=== PATIENT | male | born 1970 ===

== ENCOUNTER 2022-07-26 06:12 | Inpatient (IN) ==
[2022-07-26 06:53] LABS: Hematocrit 33 % (42-52); Hemoglobin 10.9 g/dL (14.0-18.0); Mean Corpuscular HGB Conc 33 g/dL (31-36); Mean Corpuscular Hemoglobin 31 pg (27-31); Mean Corpuscular Volume 94 fL (80-94); Mean Platelet Volume 8.6 fL (7.4-10.4); Platelet Count 281 10^3/uL (150-450); Red Blood Count 3.54 10^6 /uL (4.18-5.48); Red Cell Distribution Width 14 % (10-15); White Blood Count 27.3 10^3/uL (3.5-10.8)
[2022-07-26 07:33] LABS: ALT 17 U/L (7-52); AST 30 U/L (13-39); Albumin 3.2 g/dL (3.2-5.2); Albumin/Globulin Ratio 1.1 (1-3); Alkaline Phosphatase 102 U/L (35-149); Anion Gap 14 mmol/L (2-11); Blood Urea Nitrogen 22 mg/dL (6-24); C Reactive Protein 346.26 mg/L (<8.01); CO2 Carbon Dioxide 21 mmol/L (22-32); Calcium 7.8 mg/dL (8.6-10.3); Chloride 107 mmol/L (101-111); Globulin 2.8 g/dL (2-4); Glucose 110 mg/dL (70-100); Potassium 3.6 mmol/L (3.5-5.0); Sodium 142 mmol/L (135-145)
[2022-07-26 07:41] LABS: ABS Basophils 0.1 10^3/ul (0-0.2); ABS Lymphocytes 0.5 10^3/ul (1.0-4.8); ABS Monocytes 0.3 10^3/ul (0-0.8); ABS Neutrophils 26.4 10^3/ul (1.5-7.7); Lymphocyte % 1.7 %
[2022-07-26] MEDS ORDERED: Iodixanol (CONTRAST) 320 MG/ML 100 ML SDV IV ONE (08:10)
[2022-07-26] MEDS ORDERED: Dextrose 50% Syringe 50 ml 25 GM/50 ML SYRINGE IV PUSH PRN (10:59)
[2022-07-26] MEDS ORDERED: Piperacillin/Tazobac ADVAN 3.375 GM in NS 0.9% 100 ml BAG 100 ML IV ONE (11:19)
[2022-07-26] MEDS ORDERED: Vancomycin 1,000 MG in NS 0.9% 250 ml 250 ML IVPB ONE (11:19)
[2022-07-26 11:42] LABS: Amylase 23 U/L (29-103); Creatine Kinase 86 U/L (10-223); Lipase < 10 U/L (11.0-82.0)
[2022-07-26] MEDS ORDERED: Albuterol/Ipratropium NEB.SOL (2.5/0.5 MG) 3 ML NEB.SOLN INH SCH (12:00)
[2022-07-26] MEDS ORDERED: Zosyn per Pharmacy NOTE FOLLOW UP SCH (12:00)
[2022-07-26] MEDS ORDERED: Albuterol HFA INHALER 8 gm MDI INH PRN (12:02)
[2022-07-26] MEDS: Heparin 5000 UNITS/ML 1 mL VIAL SUBCUT SCH ×2 (13:12→22:10)
[2022-07-26] MEDS ORDERED: Perflutren Lipid Microsphere 3 ML VIAL ONE (13:34)
[2022-07-26] MEDS: ZOSYN 3.375 GM Q8H per EXTENDED INFUSION IV SCH (16:47)
[2022-07-27] MEDS: ZOSYN 3.375 GM Q8H per EXTENDED INFUSION IV SCH ×3 (00:27→16:35)
[2022-07-27] MEDS ORDERED: Vancomycin 1000 MG in NS 0.9% 250 ML IVPB SCH (01:00)
[2022-07-27 05:47] LABS: Hematocrit 30 % (42-52); Hemoglobin 9.5 g/dL (14.0-18.0); Mean Corpuscular HGB Conc 32 g/dL (31-36); Mean Corpuscular Hemoglobin 30 pg (27-31); Mean Corpuscular Volume 94 fL (80-94); Mean Platelet Volume 8.4 fL (7.4-10.4); Platelet Count 302 10^3/uL (150-450); Red Blood Count 3.15 10^6 /uL (4.18-5.48); Red Cell Distribution Width 14 % (10-15); White Blood Count 25.7 10^3/uL (3.5-10.8)
[2022-07-27 06:17] LABS: CO2 Carbon Dioxide 19 mmol/L (22-32); Calcium 7.7 mg/dL (8.6-10.3); Chloride 105 mmol/L (101-111); Magnesium 1.8 mg/dL (1.9-2.7); Sodium 134 mmol/L (135-145)
[2022-07-27 06:23] LABS: Blood Urea Nitrogen 29 mg/dL (6-24); Glucose 94 mg/dL (70-100)
[2022-07-27] MEDS: Heparin 5000 UNITS/ML 1 mL VIAL SUBCUT SCH ×3 (06:43→22:08)
[2022-07-27 06:57] LABS: Anion Gap 10 mmol/L (2-11)
[2022-07-27] MEDS ORDERED: Magnesium Sulfate IV 3 GM in NS 0.9% 100 ml BAG 100 ML IVPB ONE (09:00)
[2022-07-27] MEDS ORDERED: Vancomycin Trough Check NOTE FOLLOW UP ONE (12:30)
[2022-07-27 12:57] LABS: Vancomycin Trough 9.2 mcg/mL; eGFR CKD-EPI 53.9 (>60)
[2022-07-27] MEDS: Vancomycin 1,500 MG in NS 0.9% 250 ml 250 ML IVPB SCH (14:40)
[2022-07-27 16:29] LABS: Urine Appearance Clear; Urine Bilirubin Negative (Negative); Urine Blood 1+ (Negative); Urine Color Yellow; Urine Glucose Negative (Negative); Urine Ketones Trace (Negative); Urine Nitrite Negative (Negative); Urine Protein 2+(100 mg/dL) (Negative); Urine Specific Gravity 1.028 (1.002-1.030); Urine Urobilinogen Positive (Negative)
[2022-07-27 16:49] LABS: Urine Bacteria Absent (Absent); Urine Red Blood Cell Trace(0-2/hpf) (Absent); Urine Squamous Epithelial Cell Present (Absent); Urine White Blood Cell Absent (Absent)
[2022-07-27] MEDS ORDERED: Metoprolol Tartrate 5 mg VIAL 5 ml VIAL (1 mg/ml) IV ONE (18:10)
[2022-07-28] MEDS: ZOSYN 3.375 GM Q8H per EXTENDED INFUSION IV SCH ×3 (01:06→16:55)
[2022-07-28] MEDS ORDERED: Furosemide 40 mg/4 ml IV VIAL IV SLOW PU ONE (04:54)
[2022-07-28] MEDS: Heparin 5000 UNITS/ML 1 mL VIAL SUBCUT SCH ×3 (05:08→21:20)
[2022-07-28 05:37] LABS: Hematocrit 31 % (42-52); Hemoglobin 9.9 g/dL (14.0-18.0); Mean Corpuscular HGB Conc 32 g/dL (31-36); Mean Corpuscular Hemoglobin 30 pg (27-31); Mean Corpuscular Volume 94 fL (80-94); Mean Platelet Volume 8.3 fL (7.4-10.4); Platelet Count 288 10^3/uL (150-450); Red Blood Count 3.31 10^6 /uL (4.18-5.48); Red Cell Distribution Width 14 % (10-15); White Blood Count 18.1 10^3/uL (3.5-10.8)
[2022-07-28 06:02] LABS: Blood Urea Nitrogen 28 mg/dL (6-24); CO2 Carbon Dioxide 19 mmol/L (22-32); Calcium 8.1 mg/dL (8.6-10.3); Chloride 105 mmol/L (101-111); Glucose 105 mg/dL (70-100); Sodium 134 mmol/L (135-145); eGFR CKD-EPI 60.5 (>60)
[2022-07-28 06:08] LABS: Anion Gap 10 mmol/L (2-11)
[2022-07-28 07:01] LABS: Magnesium 1.9 mg/dL (1.9-2.7); Phosphorus 1.9 mg/dL (2.5-5.0); Potassium Redraw 3.1 mmol/L (3.5-5.0)
[2022-07-28] MEDS ORDERED: Magnesium Sulfate 2 gm BAG 2 GM/50 ML BAG IVPB ONE (07:21)
[2022-07-28] MEDS ORDERED: Potassium Chlor 20 meq TAB.ER PO ONE (07:22)
[2022-07-28] MEDS: Nicotine PATCH 7 MG/24 HR PATCH TRANSDERM SCH (09:11)
[2022-07-28 10:28] LABS: C Reactive Protein 194.83 mg/L (<8.01)
[2022-07-28] MEDS ORDERED: Anidulafungin 200 MG in NS 0.9% 250 ml 200 ML IVPB ONE (12:03)
[2022-07-28] MEDS: Vancomycin 1,500 MG in NS 0.9% 250 ml 250 ML IVPB SCH (14:46)
[2022-07-29] MEDS: ZOSYN 3.375 GM Q8H per EXTENDED INFUSION IV SCH ×3 (00:43→17:41)
[2022-07-29 05:26] LABS: Hematocrit 27 % (42-52); Hemoglobin 8.6 g/dL (14.0-18.0); Mean Corpuscular HGB Conc 32 g/dL (31-36); Mean Corpuscular Hemoglobin 30 pg (27-31); Mean Corpuscular Volume 93 fL (80-94); Mean Platelet Volume 7.8 fL (7.4-10.4); Platelet Count 298 10^3/uL (150-450); Red Cell Distribution Width 14 % (10-15); White Blood Count 12.7 10^3/uL (3.5-10.8)
[2022-07-29] MEDS: Heparin 5000 UNITS/ML 1 mL VIAL SUBCUT SCH ×3 (05:39→21:57)
[2022-07-29 06:27] LABS: Calcium 7.7 mg/dL (8.6-10.3); Magnesium 2.1 mg/dL (1.9-2.7); Phosphorus 2.8 mg/dL (2.5-5.0); Potassium 3.3 mmol/L (3.5-5.0); eGFR CKD-EPI 62.6 (>60)
[2022-07-29] MEDS ORDERED: Potassium Chlor 20 meq TAB.ER PO ONE ×2 (07:07→10:00)
[2022-07-29] MEDS: Anidulafungin 100 MG in NS 0.9% 100 ml BAG 100 ML IVPB SCH (08:11)
[2022-07-29] MEDS: Nicotine PATCH 7 MG/24 HR PATCH TRANSDERM SCH (08:12)
[2022-07-29 13:33] LABS: HIV 4th Generation Nonreactive (Nonreactive)
[2022-07-29] MEDS ORDERED: Vancomycin Trough Check NOTE FOLLOW UP ONE (14:30)
[2022-07-30] MEDS: ZOSYN 3.375 GM Q8H per EXTENDED INFUSION IV SCH ×2 (00:33→09:01)
[2022-07-30] MEDS: Heparin 5000 UNITS/ML 1 mL VIAL SUBCUT SCH (06:12)
[2022-07-30 06:15] LABS: Hematocrit 28 % (42-52); Mean Corpuscular HGB Conc 33 g/dL (31-36); Mean Corpuscular Hemoglobin 30 pg (27-31); Mean Corpuscular Volume 93 fL (80-94); Mean Platelet Volume 8.1 fL (7.4-10.4); Platelet Count 342 10^3/uL (150-450); Red Blood Count 2.98 10^6 /uL (4.18-5.48); Red Cell Distribution Width 14 % (10-15); White Blood Count 10.6 10^3/uL (3.5-10.8)
[2022-07-30 06:40] LABS: Calcium 8.2 mg/dL (8.6-10.3); Potassium 3.9 mmol/L (3.5-5.0); eGFR CKD-EPI 63.7 (>60)
[2022-07-30] MEDS: Nicotine PATCH 7 MG/24 HR PATCH TRANSDERM SCH (09:02)
[2022-07-30] MEDS: Anidulafungin 100 MG in NS 0.9% 100 ml BAG 100 ML IVPB SCH (10:25)
[2022-07-30] MEDS ORDERED: Anidulafungin 100 MG in NS 0.9% 100 ml BAG 100 ML IVPB SCH (11:00)
[2022-07-30] MEDS ORDERED: Enoxaparin 40 MG/0.4 ML SYR SUBCUT SCH (14:00)
[2022-07-30 15:06] VITALS: BP 144/79
[2022-07-30 15:43] LABS: HDL Cholesterol 18.3 mg/dL
== END 2022-07-30 17:16 | disposition home or self-care (01) | DRG 871 ==
LOC: ED 06:12 → SUATTDRO 09:54 → EDHOLD 09:54 → ICU 10:35 → MED 07-29 10:16
PROVIDERS: ADMIT Internal Medicine Critical Care Medicine; ATTEND Internal Medicine